=== PATIENT | male | born 1970 | race Hispanic/Latino ===

== ENCOUNTER 2017-08-05 20:06 | Emergency (ER) | payer BC, OTHER ==
[2017-08-05 20:23] VITALS: TEMP 97.8; O2SAT 98
[2017-08-05] MEDS ORDERED: Sodium Chloride 0.9% 1,000 ML IV ONE (20:41)
[2017-08-05] MEDS ORDERED: Sodium Chloride 0.9% 1,000 ML ONE (20:53)
[2017-08-05 21:05] LABS: BASO # 0.1 K/uL (0.0-0.2); BASO % 0.7 % (0.0-2.0); EOS # 0.3 K/uL (0.0-0.7); EOS % 3.6 % (0.0-4.0); HEMATOCRIT 45.1 % (35.0-51.0); LYMPH % 27.5 % (20.0-40.0); MEAN CELL VOLUME 86.6 fL (80.0-94.0); MEAN CORPUSCULAR HEMOGLOBIN 30.1 pg (27.0-31.0); MEAN CORPUSCULAR HGB CONC 34.8 g/dL (33.0-37.0); MEAN PLATELET VOLUME 6.7 fL (7.2-11.7); MONO # 0.6 K/uL (0.0-0.8); MONO % 7.5 % (0.0-10.0); NRBC % 0.1 % (0.0-2.0); RED CELL DISTRIBUTION WIDTH 15.4 % (11.5-14.5); WHITE BLOOD COUNT 7.4 K/uL (4.8-10.8)
[2017-08-05 21:07] LABS: ALB/GLOB RATIO 1.4 (1.0-2.1); ALKALINE PHOSPHATASE 66 U/L (38-126); ALT/SGPT 48 U/L (21-72); AST/SGOT 36 U/L (17-59); BILIRUBIN,TOTAL 0.9 mg/dL (0.2-1.3); BLOOD UREA NITROGEN 15 mg/dL (9-20); CALCIUM 8.3 mg/dl (8.6-10.4); CARBON DIOXIDE 30 mmol/L (22-30); CHLORIDE 100 mmol/L (98-107); GFR AFRICAN-AMERICAN > 60; GLUCOSE,RANDOM 90 mg/dL (75-110); POTASSIUM 3.9 mmol/L (3.6-5.2); SODIUM 133 mmol/L (132-148); TOTAL PROTEIN 6.4 g/dL (6.3-8.3)
[2017-08-05] MEDS ORDERED: Glucagon Recombinant 1 mg Inj IV STA ×2 (21:37→22:30)
[2017-08-05] MEDS ORDERED: Glucagon Recombinant 1 mg Inj ONE ×2 (21:44→22:35)
[2017-08-05 22:40] VITALS: BP 158/97; PULSE 59; RESP 19
--- NOTE | 2017-08-05 22:40 | C.PDOC ---
History Of Present Illness Pt felt a piece of steak he was eating today get stuck in his esophagus and has not been able to tolerate any food or liquid since then. Time Seen by Provider: 08/05/17 20:35 Chief Complaint (Nursing): GI Problem History Per: Patient Onset/Duration Of Symptoms: Hrs (since noontime) Current Symptoms Are (Timing): Still Present Severity: Moderate Location Of Pain/Discomfort: Other (Lower substernal chest) Quality Of Discomfort: Unable To Describe, Pressure Associated Symptoms: Vomiting (up everything he swallows) Alleviating Factors: None Additional History Per: Prior Records Past Medical History Reviewed: Historical Data, Nursing Documentation, Vital Signs Vital Signs: Last Vital Signs Temp 97.8 F 08/05/17 20:18 Pulse 59 L 08/05/17 22:40 Resp 19 08/05/17 22:40 BP 158/97 H 08/05/17 22:40 Pulse Ox 98 08/05/17 22:42 - Medical History PMH: GERD Surgical History: No Surg Hx - [facility] Procedures APPLICATION OF SPLINT (07/10/07) Family History: States: Unknown Family Hx - Social History Hx Alcohol Use: Yes Hx Substance Use: No - Immunization History Hx Tetanus Toxoid Vaccination: No Hx Influenza Vaccination: No Hx Pneumococcal Vaccination: No Review Of Systems Except As Marked, All Systems Reviewed And Found Negative. Constitutional: Negative for: Fever ENT: Negative for: Throat Pain, Throat Swelling Respiratory: Negative for: Shortness of Breath, Hemoptysis Gastrointestinal: Negative for: Abdominal Pain, Hematemesis Musculoskeletal: Negative for: Neck Pain, Back Pain Skin: Negative for: Rash Neurological: Negative for: Weakness, Numbness, Change in Speech Physical Exam - Physical Exam Appears: Non-toxic, No Acute Distress Skin: Normal Color, Warm, Dry, No Rash Head: Atraumatic, Normacephalic Eye(s): bilateral: Normal Inspection, PERRL, EOMI Oral Mucosa: Moist, No Drooling, No Trismus Throat: Normal Neck: Normal ROM, Supple Chest: Symmetrical, No Deformity, No Tenderness, No Ecchymosis, No Subcutaneous Emphysema Cardiovascular: Rhythm Regular Respiratory: Normal Breath Sounds, No Accessory Muscle Use Gastrointestinal/Abdominal: Soft, No Tenderness, No Distention Back: No CVA Tenderness Extremity: Normal ROM Neurological/Psych: Oriented x3, Normal Speech, Normal Motor, Normal Sensation ED Course And Treatment - Laboratory Results Result Diagrams: 08/05/17 20:45 08/05/17 20:45 Lab Interpretation: No Acute Changes ECG: Interpreted By Me, Viewed By Me ECG Rhythm: Sinus Rhythm, Nonspecific Changes ECG Interpretation: No Acute Changes Rate From EC O2 Sat by Pulse Oximetry: 98 Pulse Ox Interpretation: Normal - Radiology CXR: Interpreted by Me, Viewed By Me CXR Interpretation: Yes: No Acute Disease Progress Note: After meds, pt unchanged. I want to call GI consult for further treatment, including endoscopy, however pt is refusing. He wants to leave AMA right now and says he can not stay any longer even after explaining to him that this is very dangerous and that his esophagus might rupture and of complications. Reassessment Condition: Unchanged Against Medical Advice - AMA Patient Left Against Medical Advice: The patient declines admission to the hospital and wishes to leave the Emergency Department. This action is against my medical advice. This decision was made with informed refusal. The patient was told that admission to the hospital is necessary. Explanation of the reasons why were discussed. The risks of leaving were explained to the patient and include, but are not limited to, worsening of known or currently unknown conditions, permanent disability and from undiagnosed or untreated conditions. The patient has the capacity to make this informed decision and understands my explanation of the current medical problem and risks of leaving. The patient voluntarily accepts these risks and signed an AMA form documenting our conversation. The patient was given the opportunity to ask questions and reconsider. The patient was encouraged to return to the Emergency Department at any time for further care. Progress - Interventions Interventions:: Observation, Intravenous fluid - Medications Administered Intravenous: Antiemetic, H-2 lidia, Other (Glucagon) - Data Reviewed Data Reviewed: Lab, Diagnostic imaging, EKG, Old records - Patient Status Patient status: Unchanged - Continuity of Care Discussed patient case with:: Patient, ED Nurse Disposition Counseled Patient/Family Regarding: Studies Performed, Diagnosis, Need For Followup - Disposition Referrals: Ryan Amos MD [Staff Provider] - Disposition: AGAINST MEDICAL ADVICE Disposition Time: 23:04 Condition: SERIOUS Additional Instructions: Follow up with a Hand Tier as soon as possible. Return to the ER if you change your mind or if you develop worsening of symptoms or have any other concerns. Instructions: Food Impaction (ED), Against Medical Advice (ED) Forms: [employer] (Gabonese) - Clinical Impression Clinical Impression: Food impaction of esophagus, Left against medical advice
--- NOTE | 2017-08-06 18:33 | CARD ---
APPROVED REPORT EKG Measurement Heart [id number] <Conclusion> Normal sinus rhythm Minimal voltage criteria for LVH, may be normal variant Borderline ECG
== END 2017-08-05 23:10 | disposition left against medical advice (07) ==
LOC: C.ER 20:06
DX: T18.128A Food in esophagus causing other injury, initial encounter (principal); X58.XXXA Exposure to other specified factors, initial encounter
CPT/HCPCS: 71020; 80053; 83690; 84484; 85025; 85610; 85730; 93005; 96361; 96374; 96375; 96376; 99285; J1610; J2765; J7040

== ENCOUNTER 2017-08-06 08:49 | Day surgery (SDC) | payer BC ==
[2017-08-06 09:01] VITALS: BMI 26.1
--- NOTE | 2017-08-06 09:53 | C.PDOC ---
History Of Present Illness 47 y/o M c PMHx acid reflux p/w esophageal foreign body sensation x 22 hours. Patient states he was eating steak in a nance and swallowed a piece of steak that now feels as though it is stuck at the bottom of his esophagus. He states that since then, he has been unable to eat food or drink water without vomiting. He denies pain, fever, or dyspnea. He was in this ED yesterday, was given glucagon without success and left AMA to go to work but his symptoms did not resolve so he returned. Time Seen by Provider: 08/06/17 09:35 Chief Complaint (Nursing): GI Problem History Per: Patient History/Exam Limitations: no limitations Onset/Duration Of Symptoms: Hrs Current Symptoms Are (Timing): Still Present Past Medical History Reviewed: Historical Data, Nursing Documentation, Vital Signs Vital Signs: Last Vital Signs Temp 98.3 F 08/06/17 09:01 Pulse 63 08/06/17 09:01 Resp 18 08/06/17 09:01 BP 136/92 H 08/06/17 09:01 Pulse Ox 96 08/06/17 10:30 - Medical History PMH: GERD Surgical History: No Surg Hx - [facility] Procedures APPLICATION OF SPLINT (07/10/07) Family History: States: No Known Family Hx - Social History Hx Alcohol Use: Yes Hx Substance Use: No - Immunization History Hx Tetanus Toxoid Vaccination: No Hx Influenza Vaccination: No Hx Pneumococcal Vaccination: No Review Of Systems Except As Marked, All Systems Reviewed And Found Negative. Constitutional: Negative for: Fever Cardiovascular: Negative for: Chest Pain Physical Exam - Physical Exam Additional Physical Exam Comments: Constitutional: No acute distress. Head: Normocephalic. Atraumatic. Eyes: PERRL. ENT: Moist mucous membranes. Neck: Supple. Cardiovascular: Radial pulse 2+ bilaterally. Tachycardic Chest: No tenderness. Respiratory: Clear to auscultation bilaterally. GI: Soft. Nontender. Nondistended. Back: No CVA tenderness. Musculoskeletal: No tenderness or swelling of extremities. Skin: No rash. Neurologic: Alert, no focal deficit. ED Course And Treatment - Laboratory Results Result Diagrams: 08/06/17 10:26 O2 Sat by Pulse Oximetry: 96 (RA) Pulse Ox Interpretation: Normal Medical Decision Making Medical Decision Making: Called GI consult at 9:50am for endoscopy. Dr. Borrego will take patient for endoscopy. Disposition Discussed With : Gerardo Borrego - Disposition Disposition: HOSPITALIZED Disposition Time: 10:00 Condition: STABLE - Clinical Impression Clinical Impression: Food impaction of esophagus - Scribe Statement The provider has reviewed the documentation as recorded by the Scribe Huey Aguila All medical record entries made by the Chrisibowen were at my direction and personally dictated by me. I have reviewed the chart and agree that the record accurately reflects my personal performance of the history, physical exam, medical decision making, and the department course for this patient. I have also personally directed, reviewed, and agree with the discharge instructions and disposition.
--- NOTE | 2017-08-06 10:07 | CP.PCM.CON ---
<Marline Hebert - Last Filed: 08/06/17 13:37> History of Present Illness - History of Present Illness History of Present Illness: GI Consult note for Dr. Borrego Reason for consult: esophageal foreign body impaction 47 year old male PMHx GERD presents with foreign body in his esophagus. Patient states that yesterday in the AM patient was eating steak and had to swallow it quickly and felt like it got stuck at the bottom of his esophagus. He states that since then he has felt discomfort and a pressure-like sensation in the epigastric region. Patient reports he is unable to keep down any food/water without spitting up or vomiting. He admits to 6-7 episodes of nonbloody nonbilious emesis. He reports some 4/10 intensity pain when he tries to swallow but otherwise reports it is more of a discomfort than pain. He states this is the first time he has experienced esophageal foreign body impaction. On ROS patient admitted to headache and sore throat. He denied fever, chills, dizziness , chest pain, palpitations, SOB, cough, nausea, bowel/bladder complaints, pain/ swelling in his legs bilaterally. Please note patient was seen in the ED for similar complaints on 08/05 and after receiving glucagon, reglan, and pepcid he signed out AMA as he had to go to work. He returned as his symptoms had not improved or resolved. PMD: multiple physicians at [facility] GI: physician at [facility] Pharmacy: [facility] [place] PMHx: GERD PSurgHx: denies Meds: Protonix 40mg po qdaily or bid if qdaily is not effective ALL: NKDA FamHx: father with bladder ca; no hx of gastric ca or colon ca in family SocialHx: denies tobacco use and drug use; drinks EtOH socially; works in construction PProcedures: 2 endoscopies in 2016 [1 for diagnosis of GERD and second to see if PPI was helping]; no hx of colonoscopy Review of Systems - Review of Systems All systems: reviewed and no additional remarkable complaints except - Constitutional Constitutional: As Per HPI, Headache. absent: Chills, Fever - EENT Eyes: As Per HPI. absent: Blurred Vision Ears: As Per HPI. absent: Dizziness Nose/Mouth/Throat: As Per HPI, Sore Throat. absent: Dysphagia, Halitosis, Hoarsness - Cardiovascular Cardiovascular: As Per HPI. absent: Chest Pain, Dyspnea, Palpitations - Respiratory Respiratory: As Per HPI. absent: Cough, Dyspnea, Chest Congestion - Gastrointestinal Gastrointestinal: As Per HPI, Dysphagia. absent: Abdominal Pain, Constipation, Diarrhea, Dyspepsia, Nausea, Vomiting - Genitourinary Genitourinary: As Per HPI. absent: Dysuria, Hematuria, Pyuria - Musculoskeletal Musculoskeletal: As Per HPI. absent: Numbness, Tingling - Integumentary Integumentary: As Per HPI. absent: Dry Skin - Neurological Neurological: As Per HPI, Headaches. absent: Dizziness - Psychiatric Psychiatric: As Per HPI. absent: Anxiety, Depression - Endocrine Endocrine: As Per HPI. absent: Palpitations, Polydipsia, Polyphagia, Polyuria - Hematologic/Lymphatic Hematologic: As Per HPI. absent: Easy Bleeding, Easy Bruising, Lymphadenopathy Past Patient History - Past Social History Smoking Status: Never Smoked - GASTROINTESTINAL Other/Comment: Acid Reflux - PSYCHIATRIC Hx Substance Use: No - SURGICAL HISTORY Hx Orthopedic Surgery: Yes (left foot/ left hip) - ANESTHESIA Hx Anesthesia: No Hx Anesthesia Reactions: No Meds Allergies/Adverse Reactions: Allergies Allergy/AdvReac Type Severity Reaction Status Date / Time No Known Allergies Allergy Verified 08/06/17 09:20 Physical Exam - Constitutional Appears: Non-toxic, No Acute Distress - Head Exam Head Exam: ATRAUMATIC, NORMAL INSPECTION, NORMOCEPHALIC - Eye Exam Eye Exam: EOMI, Normal appearance, PERRL. absent: Conjunctival injection, Scleral icterus Pupil Exam: NORMAL ACCOMODATION - ENT Exam ENT Exam: Mucous Membranes Moist Additional comments: no trismus, no drooling - Neck Exam Neck exam: Positive for: Normal Inspection. Negative for: Lymphadenopathy, Tenderness - Respiratory Exam Respiratory Exam: Clear to Auscultation Bilateral, NORMAL BREATHING PATTERN. absent: Accessory Muscle Use, Rales, Rhonchi, Wheezes, Respiratory Distress - Cardiovascular Exam Cardiovascular Exam: REGULAR RHYTHM, RRR, +S1, +S2. absent: Systolic Murmur - GI/Abdominal Exam GI & Abdominal Exam: Normal Bowel Sounds, Soft. absent: Distended, Firm, Guarding, Rigid, Tenderness - Extremities Exam Extremities exam: Positive for: normal capillary refill, normal inspection, pedal pulses present. Negative for: pedal edema - Neurological Exam Neurological exam: Alert, CN II-XII Intact, Oriented x3 - Psychiatric Exam Psychiatric exam: Normal Affect, Normal Mood - Skin Skin Exam: Dry, Intact, Normal Color, Warm Results - Vital Signs Recent Vital Signs: Last Vital Signs Temp 98.3 F 08/06/17 09:01 Pulse 63 08/06/17 09:01 Resp 18 08/06/17 09:01 BP 136/92 H 08/06/17 09:01 Pulse Ox 96 08/06/17 09:53 - Labs Result Diagrams: 08/06/17 10:26 08/06/17 10:26 Assessment & Plan - Assessment and Plan (Free Text) Assessment: 47 year old male PMHx GERD presents with esophageal foreign body impaction Plan: - Patient for EGD with Dr. Borrego this afternoon for extraction of foreign body - Preop labs, EKG and CXR unremarkable - NS @ 100cc/hr - will attempt food trial prior to discharge Discussed with Dr. Salima Hebert PGY2 <Gerardo Borrego - Last Filed: 08/06/17 17:07> Results - Vital Signs Recent Vital Signs: Last Vital Signs Temp 98.2 F 08/06/17 14:37 Pulse 64 08/06/17 14:37 Resp 15 08/06/17 14:37 BP 142/67 08/06/17 14:37 Pulse Ox 99 08/06/17 14:37 - Labs Result Diagrams: 08/06/17 10:26 08/06/17 10:26 Labs: Laboratory Results - last 24 hr 08/06/17 08/06/17 08/06/17 10:26 10:26 10:26 WBC 5.5 RBC 5.21 Hgb 16.0 Hct 45.2 MCV 86.7 MCH 30.6 MCHC 35.3 RDW 15.2 H Plt Count 265 MPV 6.8 L Neut % (Auto) 59.8 Lymph % (Auto) 26.8 Gregg % (Auto) 7.4 Eos % (Auto) 5.4 H Baso % (Auto) 0.6 Neut # 3.3 Lymph # 1.5 Gregg # 0.4 Eos # 0.3 Baso # 0.0 PT 11.7 INR 1.0 APTT 33 Sodium 131 L Potassium 3.8 Chloride 100 Carbon Dioxide 28 Anion Gap 7 L BUN 13 Creatinine 0.8 Est GFR ( Amer) > 60 Est GFR (Non-Af Amer) > 60 Random Glucose 89 Calcium 8.1 L Total Bilirubin 1.0 AST 39 ALT 54 Alkaline Phosphatase 65 Total Protein 7.6 Albumin 3.7 Globulin 4.0 H Albumin/Globulin Ratio 0.9 L Blood Type Antibody Screen 08/06/17 10:29 WBC RBC Hgb Hct MCV MCH MCHC RDW Plt Count MPV Neut % (Auto) Lymph % (Auto) Gregg % (Auto) Eos % (Auto) Baso % (Auto) Neut # Lymph # Gregg # Eos # Baso # PT INR APTT Sodium Potassium Chloride Carbon Dioxide Anion Gap BUN Creatinine Est GFR ( Amer) Est GFR (Non-Af Amer) Random Glucose Calcium Total Bilirubin AST ALT Alkaline Phosphatase Total Protein Albumin Globulin Albumin/Globulin Ratio Blood Type O POSITIVE Antibody Screen Negative Attending/Attestation - Attestation I have personally seen and examined this patient.: Yes I have fully participated in the care of the patient.: Yes I have reviewed all pertinent clinical information: Yes Notes (Text): 08/06/17 12:06 47 year old male with h/o GERD admitted with food impaction. 1. Food impaction 2. GERD Plan: -steak food bolus impaction -non-responsive to medical therapy -recommend egd for disimpaction today -npo -discussed the risks/benefits of procedure
[2017-08-06 10:36] LABS: BASO % 0.6 % (0.0-2.0); EOS # 0.3 K/uL (0.0-0.7); EOS % 5.4 % (0.0-4.0); HEMATOCRIT 45.2 % (35.0-51.0); LYMPH # 1.5 K/uL (1.0-4.3); LYMPH % 26.8 % (20.0-40.0); MEAN CELL VOLUME 86.7 fL (80.0-94.0); MEAN CORPUSCULAR HEMOGLOBIN 30.6 pg (27.0-31.0); MEAN CORPUSCULAR HGB CONC 35.3 g/dL (33.0-37.0); MEAN PLATELET VOLUME 6.8 fL (7.2-11.7); MONO # 0.4 K/uL (0.0-0.8); MONO % 7.4 % (0.0-10.0); NRBC % 0.1 % (0.0-2.0); RED CELL DISTRIBUTION WIDTH 15.2 % (11.5-14.5); WHITE BLOOD COUNT 5.5 K/uL (4.8-10.8)
[2017-08-06] MEDS ORDERED: Sodium Chloride 0.9% 1,000 ML IV SCH (10:45)
[2017-08-06 10:49] LABS: ALB/GLOB RATIO 0.9 (1.0-2.1); ALKALINE PHOSPHATASE 65 U/L (38-126); ALT/SGPT 54 U/L (21-72); AST/SGOT 39 U/L (17-59); BLOOD UREA NITROGEN 13 mg/dL (9-20); CALCIUM 8.1 mg/dl (8.6-10.4); CARBON DIOXIDE 28 mmol/L (22-30); CHLORIDE 100 mmol/L (98-107); GFR AFRICAN-AMERICAN > 60; GLUCOSE,RANDOM 89 mg/dL (75-110); POTASSIUM 3.8 mmol/L (3.6-5.2); SODIUM 131 mmol/L (132-148); TOTAL PROTEIN 7.6 g/dL (6.3-8.3)
[2017-08-06] MEDS ORDERED: Midazolam 2 MG/2 ML VIAL ONE (12:46)
[2017-08-06] MEDS ORDERED: Lidocaine Hydrochloride 10 ML INJ ONE (12:46)
[2017-08-06] MEDS ORDERED: Lidocaine Hydrochloride 5 ML INJ ONE ×2 (12:48→12:50)
[2017-08-06 13:37] VITALS: O2SAT 99
[2017-08-06 13:38] VITALS: TEMP 98.2
[2017-08-06 13:48] VITALS: RESP 15
[2017-08-06 14:44] VITALS: BP 142/67; PULSE 64
== END 2017-08-06 14:37 | disposition home or self-care (01) ==
LOC: C.SDS 08:49 → C.ER 08:49 → C.SDS 10:32
PROVIDERS: ATTEND Internal Medicine
DX: T18.128A Food in esophagus causing other injury, initial encounter (principal); K21.9 Gastro-esophageal reflux disease without esophagitis; K44.9 Diaphragmatic hernia without obstruction or gangrene